=== PATIENT | male | born 1960 ===

== ENCOUNTER 2018-01-12 11:57 | Outpatient (REF) | payer BC, SELFPAY ==
[2018-01-12 21:06] LABS: INR 1.3 (1.0-3.5); Prothrombin Time 12.4 sec (9.3-10.8)
== END 2018-01-12 12:17 ==
LOC: NCHCN 11:57
PROVIDERS: PCP Internal Medicine; Visit Provider Internal Medicine
DX: Z79.01 Long term (current) use of anticoagulants (principal)
CPT/HCPCS: 85610

== ENCOUNTER 2018-12-01 21:54 | Outpatient (REF) | payer BC, SELFPAY | END 2018-12-01 22:14 | LOC: NCHCN 21:54 | PROVIDERS: PCP Internal Medicine; Visit Provider Internal Medicine | DX: I10 Essential (primary) hypertension (principal) | CPT/HCPCS: 80048 ==

== ENCOUNTER 2018-12-07 17:20 | Outpatient (REF) | payer BC, SELFPAY ==
[2018-12-07 21:22] LABS: Anion Gap 7.4 mmol/L (3-11); BUN 15 mg/dL (7-18); CO2 30.6 mmol/L (21.0-32.0); CREATININE 0.91 mg/dL (0.70-1.30); Calcium 9.1 mg/dL (8.5-10.1); Chloride 101 mmol/L (98-107); Glucose 94 mg/dL (70-100); Potassium 4.6 mmol/L (3.5-5.1); Sodium 139 mmol/L (136-145)
== END 2018-12-07 17:40 ==
LOC: NCHCN 17:20
PROVIDERS: PCP Internal Medicine; Visit Provider Internal Medicine
DX: I10 Essential (primary) hypertension (principal); Z82.49 Family history of ischemic heart disease and other diseases of the circulatory system
CPT/HCPCS: 80048